=== PATIENT | female | born 1965 | race Caucasian/White ===

== ENCOUNTER 2019-08-29 08:14 | Day surgery (SDC) | payer OTHER ==
[~2019-08-29] VITALS: Ht 167.6 cm; Wt 73.9 kg
[~2019-08-29 08:14] MED LIST: ARMOUR THYROID120 MG PO; DOXYCYCLINE HY100 MG PO; L-LYSINE500 M1 PO; MELATONIN5 M2 PO; NORCO 5-325 TA1 EACH; NORCO 5-325 TA1 EACH PO; VITAMIN D22000 UNIT PO; ZYRTEC10 M3 PO
--- NOTE | 2019-08-29 10:01 | NUR ---
08/29/19 1001 Courtney Jordan 0957 PATIENT ARRIVES TO PACU SLEEPING, AWAKENS WITH VERBAL STIMULI. ANSWERS QUESTIONS SLOWLY BUT APPROPRIATELY, THEN BACK TO SLEEP. RESP EVEN AND UNLABORED, ROOM AIR SATS .98%.
--- NOTE | 2019-08-29 11:00 | NUR ---
NO DS W[employer]ER [employer]ER WAS AVAILABLE WHEN PT ARRIVED, TOOK HER TO HER RM, WELCOMED HER AND HER . lET THEM KNOW I WILL NOTIFY HER RN THAT THEY ARE HERE PT AND HER THANKED ME, WILL FOLLOW NEEDED
--- NOTE | 2019-08-30 08:17 | OR ---
[facility] [address], [place] [address] Signed DATE OF OPERATION: 08/29/2019 SURGEON: Agustín Baig MD PREOPERATIVE DIAGNOSIS: Rectal bleeding. POSTOPERATIVE DIAGNOSES: 1. Minimal internal and external hemorrhoids. 2. Several internal anal skin tags. PROCEDURE: Colonoscopy without biopsy. ESTIMATED BLOOD LOSS: None. INDICATIONS: Serena is a 53-year-old female, asked to see me for a colonoscopy. She has had intermittent rectal bleeding about each month. It is usually with her bowel movements. She is pretty certain she has some external hemorrhoids. She gives no family history of colon cancer or polyps. She has never had a previous colonoscopy. However, I did help her recently with his colonoscopy. Consequently, she is familiar with the process. In the office, I gave her a pamphlet on colonoscopy. We did look at that together in detail. She understands the nature of the test along with the risks including, but not limited to gas bloating, crampy abdominal pain, bleeding, perforation requiring surgery, and missed diagnosis. She also understands the need for IV conscious sedation. She had expressed understanding and wished to proceed. PROCEDURE NOTE: Serena was taken into our endoscopy suite and placed in the left lateral decubitus position. She was given IV sedation with 8 mg of Versed and 150 mcg of fentanyl. A digital rectal exam was performed and this was unremarkable. She had a digital rectal exam and this showed some very small external hemorrhoids. She had good sphincter tone. The adult colonoscope was then introduced and advanced all around into the cecum under direct visualization of the camera. It took some extra sedation and abdominal compression in order to advance the scope directly into the cecum itself. There were several areas of liquid particulate stool matter. Most of that was suctioned out. We could see the appendiceal orifice along with the ileocecal valve. We took pictures throughout for photodocumentation. The scope was slowly withdrawn. We saw no pathology Electronically Signed By: AGUSTÍN BAIG MD 08/30/19 0817 PATIENT NAME: SERENA BURNETT OPERATIVE REPORT DATE OF : 63 REPORT #: [id number] PHYSICIAN: AGUSTÍN BAIG MD PCP: SUPRIYA MOODY MD REPORT IS CONFIDENTIAL AND NOT TO BE RELEASED WITHOUT AUTHORIZATION [facility] [address] [place], [place] [address] Signed throughout the entire colon or rectum. Upon retroflexion of scope, she has several [id number] sized internal anal skin tags. After this, the gas was suctioned out and the colonoscope removed. Serena tolerated the procedure quite well. RECOMMENDATIONS: Serena is welcome to follow up in 10 years for repeat colonoscopy. If she wants to follow up sooner for her hemorrhoids, she is welcome to call the office. MD REGGIE White/ABEL /[id number] cc: MD Supriya White MD Copies: AGUSTÍN BAIG MD ~ Electronically Signed By: AGUSTÍN BAIG MD 08/30/19 0817 PATIENT NAME: SERENA BURNETT OPERATIVE REPORT DATE OF : 63 REPORT #: [id number] PHYSICIAN: AGUSTÍN BAIG MD PCP: SUPRIYA MOODY MD REPORT IS CONFIDENTIAL AND NOT TO BE RELEASED WITHOUT AUTHORIZATION
== END 2019-08-29 10:25 | disposition home or self-care (01) ==
LOC: DS 08:14 → OPS 08:14 → DS 08:24 → OPS 08:24 → DS 09:45 → OPS 09:45
PROVIDERS: Colon & Rectal Surgery
PROC: 0DJD8ZZ Inspection of Lower Intestinal Tract, Via Natural or Artificial Opening Endoscopic (ICD-10-PCS; principal; 2019-08-29 09:45)
DX: K64.8 Other hemorrhoids (principal); K64.4 Residual hemorrhoidal skin tags; E03.9 Hypothyroidism, unspecified; Z79.899 Other long term (current) drug therapy; Z88.1 Allergy status to other antibiotic agents
CPT/HCPCS: 99153; G0500; J2250; J3010; J7121